=== PATIENT | female | born 1985 | race Caucasian/White ===

== ENCOUNTER → 2016-09-04 | Day surgery (SDC) | payer BC ==
[~2016-09-04] VITALS: Ht 162.6 cm; Wt 124.7 kg
[~2016-09-04] MED LIST: BUPIVAC MPF-EPI 0.5%-1:200000 30 ML VIAL. ONE; CEFAZOLIN 2GM PREMIX 50 ML IV PRN; DEXAMETHASONE SOD PHOS 20 MG/5 ML VIAL. ONE; DULO60CA6 PO; EPHEDRINE PF IN SALINE 50 MG/5 ML DISP.SYRIN. IV ONE; FENTANYL PF 100 MCG/2 ML VIAL. IV PRN; FENTANYL PF 100 MCG/2 ML VIAL. ONE; HYDROMORPHONE 2 MG/ML VIAL. IV PRN; IBUP-1027 PO; IV RINGERS,LACTATED 1000ML 1,000 ML IV SCH; LIDOCAINE 1% 1 ML SYRINGE. ID PRN; LIDOCAINE 1%/EPI 1:100,000 20 ML VIAL. ONE; LIDOCAINE 2% 100 MG/5 ML DISP.SYRIN. ONE; METF10002 PO; ONDANSETRON PF 4 MG/2 ML VIAL. IV PRN; ONDANSETRON PF 4 MG/2 ML VIAL. ONE; OXYC-323 PO; OXYCODONE/APAP 5/325 TABLET. PO ONE; PROCHLORPERAZINE 10 MG/2 ML VIAL. IV PRN; PROPOFOL 20 ML IV ONE; SEVOFLURANE 61 TO 120 MINUTES. IH ONE; SUCCINYLCHOLINE 200 MG/10 ML VIAL. ONE
[2016-09-04 07:58] LABS: NEG OBC UR NEG; POS OBC UR POS
--- NOTE | 2016-09-04 09:48 | DISCH ---
DISCHARGE INSTRUCTIONS Condition on Discharge Condition on Discharge: Stable Activity After Discharge Activity Instructions for Disc: Activity as tolerated Driving Instructions after Dis: Other, see below (no driving if taking pain meds) Diet after Discharge Diet after Discharge: Regular Wound Incision Care Wound/Incision Care: Other, see below (keep dressing clean and dry X 72 hours, may then remove and shower) Follow-Up Follow up with: Dr More in 1-2 weeks, call for appointment [phone] KIANA MORE MD Sep 04, 2016 09:48
--- NOTE | 2016-09-04 09:54 | PDOC4 ---
Operative Note Operative Note Operative Note: Preoperative Diagnosis: Left lower quadrant abdominal wall mass Postoperative Diagnosis: Same Procedure: Excision of left lower quadrant abdominal wall mass Surgeon: Robert Anesthesia: Gen. EBL: 10 mL Specimen: Abdominal wall mass to pathology Drains: None Complications: None Indication: The patient is a 30-year-old female who is referred due to a tender left lower quadrant abdominal wall mass. She complained of focal pain in the mass was confirmed on CT scan. She was offered surgical excision. The risks of surgery were discussed which include bleeding, infection, recurrence, pain, anesthetic risk, potential need for additional surgery or procedure. She understands and would like to proceed. Description: The patient was taken to the operating room and placed supine on the operating table. Gen. anesthesia was performed. The abdomen was prepped with ChloraPrep and draped in a standard surgical manner. An incision was made in the left lower quadrant near the location of the expected mass. Cautery dissection was carried down to the deeper subcutaneous tissue. I was able to clearly palpate a firm fibrotic area corresponding to the mass near the lateral border of the rectus. Cautery dissection was continued in mobilizing the mass from the surrounding normal tissue. This was somewhat difficult due to the marked fibrosis and inflammatory change. The mass also appeared to be adherent to the fascia. Gradually we were able to fully mobilize the mass circumferentially. The mass did not appear to penetrate deep to the fascia. The mass was then taken off of the fascia using sharp dissection. The mass was then completely excised and measured 6 x 6 cm which incorporated the surrounding fibrotic tissue. This was sent to pathology in formalin. Several small bleeding points in the wound base were controlled with cautery. Hemostasis was good and no other abnormalities were seen. The fascia was reinspected and appeared intact with no need for reconstruction. The deep subcutaneous tissue was approximated with interrupted 0 Vicryl. The more superficial subcutaneous tissue was closed with 3-0 Vicryl. The skin was closed with 4-0 Monocryl. Half percent Marcaine with epinephrine was infiltrated at the incision site. Steri-Strips and a sterile dressing were then applied. The patient tolerated the procedure well and was sent to the recovery room in stable condition. At the end of the case all counts were correct. KIANA MORE MD Sep 04, 2016 09:54
[2016-09-04] MEDS: FENTANYL PF 100 MCG/2 ML VIAL. IV PRN ×4 (10:17→10:48)
[2016-09-04] MEDS: MORPHINE SULFATE 2 MG/ML DISP.SYRIN. IV PRN ×5 (10:29→11:33)
[2016-09-04 11:47] VITALS: BP 130/73
--- NOTE | 2016-09-05 15:09 | PATHOLOGY ---
PATHOLOGY REPORT * * * * * * * * FINAL DIAGNOSIS: Fibroadipose tissue, left lower quadrant abdominal wall mass: - Endometriosis with associated scarring and focal chronic inflammation. COMMENT: There is no evidence of malignancy. (TRINITYM:; d/t: 09/05/16) REPORT ELECTRONICALLY SIGNED BY: Perry Pacheco M.D. DATE/TIME: 09/05/2016 15:08 * * * * * * * * GROSS PATHOLOGY: Received in formalin labeled "Bolivar Blakely and left lower quadrant abdominal wall mass," is a segment of lobulated fibroadipose tissue measuring 6.2 x 5.5 x 4.3 cm in maximum dimensions. The specimen is inked black. Sectioning reveals a 2.5 x 2.5 x 2.0 cm white-sebastian, poorly circumscribed, and partially cystic lesion filled with dark brown viscous fluid. The lesion is located approximately 0.3 cm from the nearest margin. Automatic Brine Mixer Operator tissue is submitted in cassettes A1-A4. (TTL; 09/04/2016) INITIAL CPT CODE(S): 17306 Professional services performed [place] [facility] [address] Technical services performed by [facility] at [address] [place] [address] Dr. Jones SPECIMEN(S) RECEIVED: A.Left lower quadrant abdominal wall mass CLINICAL HISTORY: Left lower quadrant abdominal wall mass PATIENT: BOLIVAR BLAKELY /AGE: 7 1985 (Age: 30) PATIENT #: [id number] ALT CASE #: SPECIMEN COLLECTION DATE: 09/04/2016 SPECIMEN RECEIVED DATE: 09/04/2016 [facility] - [address] [place] [address] - PHONE: [phone] * * * END OF REPORT * * *
== END | disposition home or self-care (01) ==
LOC: SURG 06:58
PROVIDERS: ATTEND Surgery
DX: M79.89 Other specified soft tissue disorders (principal); E66.9 Obesity, unspecified; Z72.0 Tobacco use; Z90.49 Acquired absence of other specified parts of digestive tract
CPT/HCPCS: 22903; 81025; 82947; J0330; J0690; J1100; J2270; J2405; J2704; J3010; J3490

== ENCOUNTER 2016-10-27 12:31 | Emergency (ER) | payer BC ==
[~2016-10-27] VITALS: Ht 162.6 cm; Wt 125.6 kg
[~2016-10-27 12:31] MED LIST changes: -BUPIVAC MPF-EPI 0.5%-1:200000 30 ML VIAL. ONE; -CEFAZOLIN 2GM PREMIX 50 ML IV PRN; -DEXAMETHASONE SOD PHOS 20 MG/5 ML VIAL. ONE; -EPHEDRINE PF IN SALINE 50 MG/5 ML DISP.SYRIN. IV ONE; -FENTANYL PF 100 MCG/2 ML VIAL. IV PRN; -FENTANYL PF 100 MCG/2 ML VIAL. ONE; -HYDROMORPHONE 2 MG/ML VIAL. IV PRN; -IV RINGERS,LACTATED 1000ML 1,000 ML IV SCH; -LIDOCAINE 1% 1 ML SYRINGE. ID PRN; -LIDOCAINE 1%/EPI 1:100,000 20 ML VIAL. ONE; -LIDOCAINE 2% 100 MG/5 ML DISP.SYRIN. ONE; +METF-620 PO; -METF10002 PO; -ONDANSETRON PF 4 MG/2 ML VIAL. IV PRN; -ONDANSETRON PF 4 MG/2 ML VIAL. ONE; -OXYCODONE/APAP 5/325 TABLET. PO ONE; -PROCHLORPERAZINE 10 MG/2 ML VIAL. IV PRN; -PROPOFOL 20 ML IV ONE; -SEVOFLURANE 61 TO 120 MINUTES. IH ONE; -SUCCINYLCHOLINE 200 MG/10 ML VIAL. ONE
[2016-10-27 12:58] VITALS: BP 171/79
[2016-10-27 13:13] LABS: BILIRUBIN,URINE NEGATIVE (NEG); GLUCOSE,URINE >=1000 mg/dL (NEG); NITRITE,URINE NEGATIVE (NEG); PH,URINE 5.5; PROTEIN,URINE NEGATIVE (NEG-TRACE); UROBILINOGEN,URINE 0.2 mg/dL (0.2 mg/dL)
--- NOTE | 2016-10-27 13:17 | ED.ADGEN ---
Adult General Chief Complaint Chief Complaint: ABDOMINAL PAIN HPI HPI Patient is a 30 year old woman, history of type 2 diabetes mellitus, for which she uses metformin, who presents emergency Department with complaint of worsening left lower quadrant abdominal pain. Patient states that the symptoms she is experiencing have been coming and going over the past several weeks. She states that she had a surgery performed on her left lower abdomen in August of this year to excise a mass due to scarring from endometriosis. She states the pain is the same location, and has been associated with recurrence and continued increasing size of mass in that area. She states she was seen by her surgeon, Dr. Jones, last week, at that time he stated he would continue to monitor the situation. States over the pain has been recurrent and worsening with a past several days, prompting her to come to the ED for evaluation. She states she's been using medications such as ibuprofen and Midol at home without relief. She states the pain is a stabbing and cramping sensation that radiates across her abdomen was worse the left lower quadrant. She denies any fevers or chills, any chest pain or shortness breath, any nausea or vomiting, any urinary complaints, any diarrhea, any weakness numbness or tingling. No injuries. Denies any possibility of , no discharge or drainage from the vagina. She has not taken any medication for pain today. Review of Systems Review of Systems Constitutional: Denies fever or chills. [] Eyes: Denies change in visual acuity. [] HENT: Denies nasal congestion or sore throat. [] Respiratory: Denies cough or shortness of breath. [] Cardiovascular: Denies chest pain or edema. [] GI: Denies nausea, vomiting, bloody stools or diarrhea. Stabbing pain in the left abdomen, associated with abdominal wall mass. : Denies dysuria. [] Musculoskeletal: Denies back pain or joint pain. [] Integument: Denies rash. [] Neurologic: Denies headache, focal weakness or sensory changes. [] Endocrine: Denies polyuria or polydipsia. [] Lymphatic: Denies swollen glands. [] Psychiatric: Denies depression or anxiety. [] Current Medications Current Medications Current Medications Medications (Trade) Dose Ordered Sig/Denis Start Time Stop Time Status Last Admin Dose Admin Morphine Sulfate 4 mg PRN Q15MIN PRN 10/27/16 14:45 10/28/16 14:44 10/27/16 15:10 4 MG Naproxen (Naprosyn) 250 mg 1X ONCE 10/27/16 13:45 10/27/16 13:46 DC 10/27/16 13:58 250 MG Oxycodone/ Acetaminophen (Percocet 5/325) 1 tab 1X ONCE 10/27/16 13:45 10/27/16 13:46 DC 10/27/16 13:58 1 TAB Allergies Allergies Allergies Coded Allergies Type Severity Reaction Last Updated Verified diphenhydramine Allergy Intermediate Hives 09/04/16 Yes latex Allergy Intermediate 09/04/16 Yes Physical Exam Physical Exam Constitutional: Well developed, obese, no acute distress, non-toxic appearance. [] HENT: Normocephalic, atraumatic, bilateral external ears normal, oropharynx moist, no oral exudates, nose normal. [] Eyes: PERRLA, EOMI, conjunctiva normal, no discharge. [] Neck: Normal range of motion, no tenderness, supple, no stridor. [] Cardiovascular:Heart rate regular rhythm, no murmur, S1, S2, rubs or gallops. [] Lungs & Thorax: Bilateral breath sounds clear to auscultation, no wheezing, rhonchi, rales. No chest wall crepitus or tenderness. [] Abdomen: Bowel sounds normal, soft, patient with well-healed surgical incision noted in the left lower abdomen, patient has an approximately 6 cm x 7 cm mass located in the left lower quadrant in this region above the scar, which is mobile, no signs of skin changes, tender to palpation in the area, there is a palpation, no external signs of trauma or lesions, no pulsatile masses. [] Skin: Warm, dry, no erythema, no rash. [] Back: No tenderness, no CVA tenderness. [] Extremities: No tenderness, no cyanosis, no clubbing, ROM intact, no edema. [] Neurologic: Alert and oriented X 3, normal motor function, normal sensory function, no focal deficits noted. [] Psychologic: Affect normal, judgement normal, mood normal. [] Current Patient Data Vital Signs Vital Signs Date Time Temp Pulse Resp B/P (MAP) Pulse Ox O2 Delivery O2 Flow Rate FiO2 10/27/16 15:10 Room Air 10/27/16 12:58 98.4 95 18 171/79 109 93 98.4 Lab Values Laboratory Tests Test 10/27/16 12:11 10/27/16 12:59 POC Urine HCG, Qualitative Hcg negative (Negative) Urine Collection Type Unknown Urine Color Yellow Urine Clarity Clear Urine pH 5.5 Urine Specific [place] >=1.030 Urine Protein Negative mg/dL (NEG-TRACE) Urine Glucose (UA) >=1000 mg/dL (NEG) Urine Ketones (Stick) Negative mg/dL (NEG) Urine Blood Negative (NEG) Urine Nitrite Negative (NEG) Urine Bilirubin Negative (NEG) Urine Urobilinogen Dipstick 0.2 mg/dL (0.2 mg/dL) Urine Leukocyte Esterase Negative (NEG) Urine RBC 0 /HPF (0-2) Urine WBC 1-4 /HPF (0-4) Urine Bacteria 0 /HPF (0-FEW) EKG EKG Not indicated. [] Radiology/Procedures Radiology/Procedures [] [facility] [address] [place] [address] IMAGING REPORT Signed PATIENT: YAIMA DALLAS ACCOUNT: [id number] : 1985 LOCATION: ER AGE: 30 SEX: F EXAM STATUS: REG ER ORD. PHYSICIAN: FOREST HOFF DO REASON: L abd mass/likely seroma s/p excision of emdometrioma/US notify at 1400 PROCEDURE: ABDOMEN LTD Examination: Ultrasound abdomen limited History: History of left lower quadrant abdomen mass Comparison: None available Findings In the region of the left lower quadrant of the abdomen, near the surgical site, at the site of palpability, there is a 6.9 x 7.4 x 6.6 cm complex appearing structure cystic structure containing internal echoes likely hematoma or seroma. No vascular flow within. Impression: 7.4 cm complex appearing cystic structure containing internal echoes likely hematoma /seroma at the site of palpability in the left lower quadrant abdomen. Follow-up to resolution. DICTATED and SIGNED BY: JOSEFA DICK MD DATE: 10/27/16 0534 CC: FOREST HOFF DO; MENDEL MONTANO ~ Course & Med Decision Making Course & Med Decision Making Pertinent Labs and Imaging studies reviewed. (See chart for details) After examining the patient, I spoke to Dr. Loza, was on-call for the patient' s surgeon. He did review her records, after examination I believe this is likely a seroma based on the patient's surgical history and time frame. He requested an ultrasound be performed to further elucidate the patient's symptoms , if it is a seroma the no be appropriate for the patient to follow-up in the office for additional evaluation with pain control. I discussed this with patient, she is agreeable this plan. She did receive naproxen and hydrocodone in the emergency department, with some improvement of her pain all she continues to have discomfort. Ultrasound revealed a 6.9 x 7.4 x 6.6 cm complex cystic structure containing internal echoes likely hematoma or seroma. No flow within this area, no other abnormalities identified. I did discuss with the patient, discussed that the sternal may be reabsorbed by the body, but that she will be best served by following up with Dr. Jones next week for additional evaluation, we did discuss concerning symptoms that prompt return to the emergency department, and use of pain medication as needed along with medication precautions. Patient voiced understanding and agreement with both instructions and plan, discharged home in stable condition with family with plan as above. Dragon Disclaimer Dragon Disclaimer This electronic medical record was generated, in whole or in part, using a voice recognition dictation system. Departure Impression: Primary Impression: Abdominal wall mass of left lower quadrant Additional Impression: Abdominal pain Disposition: 01 HOME, SELF-CARE Condition: IMPROVED Scripts Hydrocodone/Apap 5-325 (NORCO 5-325 TABLET) 1 Each Tablet 1 TAB PO PRN Q6HRS Y for PAIN, #12 TAB 0 Refills Prov: FOREST HOFF DO 10/27/16 Naproxen (NAPROSYN) 500 Mg Tablet 500 MG PO BID, #10 TAB Prov: FOREST HOFF DO 10/27/16 Problem Qualifiers FOREST HOFF DO October 27, 2016 13:17
[2016-10-27 13:24] LABS: BACTERIA,URINE 0 /HPF (0-FEW); RBC,URINE 0 /HPF (0-2)
[2016-10-27] MEDS ORDERED: NAPROXEN 250 MG TABLET PO ONE (13:45)
[2016-10-27] MEDS ORDERED: oxyCODONE/APAP 5/325 1 TAB TABLET PO ONE (13:45)
[2016-10-27] MEDS ORDERED: MORPHINE SULFATE 4 MG/ML DISP.SYRIN. IV/SQ PRN (14:45)
--- NOTE | 2016-10-27 15:09 | RAD ---
Examination: Ultrasound abdomen limited History: History of left lower quadrant abdomen mass Comparison: None available Findings In the region of the left lower quadrant of the abdomen, near the surgical site, at the site of palpability, there is a 6.9 x 7.4 x 6.6 cm complex appearing structure cystic structure containing internal echoes likely hematoma or seroma. No vascular flow within. Impression: 7.4 cm complex appearing cystic structure containing internal echoes likely hematoma /seroma at the site of palpability in the left lower quadrant abdomen. Follow-up to resolution.
[2016-10-27] MEDS ORDERED: HYDR-971 PO (15:19)
[2016-10-27] MEDS ORDERED: NAPR500T PO (15:19)
== END 2016-10-27 15:35 | disposition home or self-care (01) ==
LOC: ER 13:53
DX: R19.04 Left lower quadrant abdominal swelling, mass and lump (principal); R10.32 Left lower quadrant pain; E11.9 Type 2 diabetes mellitus without complications; Z79.899 Other long term (current) drug therapy; Z88.8 Allergy status to other drugs, medicaments and biological substances; Z91.040 Latex allergy status
CPT/HCPCS: 76705; 81001; 81025; 96374; 99285; J2270

== ENCOUNTER 2016-10-31 06:53 | Outpatient (CLI) | payer BC ==
[2016-10-31] VITALS (13 sets, daily range): BP systolic 121–146; BP diastolic 59–86
[~2016-10-31] VITALS: Ht 162.6 cm; Wt 124.7 kg
[~2016-10-31 06:53] MED LIST changes: +HYDR-971 PO; +NAPR500T PO
[2016-10-31 07:19] LABS: BASO # 0.1 x10^3/uL (0.0-0.2); BASO % 1 % (0-3); EOS % 2 % (0-3); HEMATOCRIT 43.5 % (36.0-47.0); HEMOGLOBIN 14.7 g/dL (12.0-15.5); LYMPH % 26 % (24-48); MEAN CORPUSCULAR HEMOGLOBIN 29 pg (25-35); MEAN CORPUSCULAR HGB CONC 34 g/dL (31-37); MEAN CORPUSCULAR VOLUME 87 fL (79-100); MONO % 8 % (0-9); NEUT % 64 % (31-73); PLATELET COUNT 197 x10^3/uL (140-400); RED CELL DISTRIBUTION WIDTH 13.2 % (11.5-14.5); WHITE BLOOD COUNT 7.8 x10^3/uL (4.0-11.0)
[2016-10-31 07:29] LABS: PROTHROMBIN TIME PATIENT 12.1 SEC (11.7-14.0)
[2016-10-31] MEDS ORDERED: LIDOCAINE 1% / SOD BICARB 8.4% 20 ML VIAL. IJ ONE ×2 (08:13→08:45)
[2016-10-31] MEDS ORDERED: fentaNYL PF VIAL 250 MCG/5 ML VIAL ONE (08:24)
[2016-10-31] MEDS ORDERED: MIDAZOLAM HCL/PF 5 MG/5 ML VIAL. ONE (08:24)
[2016-10-31] MEDS ORDERED: fentaNYL PF VIAL 250 MCG/5 ML VIAL IV ONE (08:40)
[2016-10-31] MEDS ORDERED: MIDAZOLAM HCL/PF 5 MG/5 ML VIAL. IV ONE (08:45)
--- NOTE | 2016-10-31 09:31 | PDOC ---
MODERATE SEDATION ASSESSMENT RISKS/ALTERNATIVES Risks/Alternatives Risks and alternatives of this type of sedation and procedure discussed with: RISK/ALTERNATIVES: Patient H & P ON CHART H & P H & P on chart and reviewed for co-morbid conditions and appropriate labs. H&P ON CHART: Yes STATUS PREG STATUS ASSESSED: Yes MEDS/ALLERGIES REVIEWED Meds/Allergies Reviewed Medications and Allergies including time and route of recently administered narcotics and sedatives. MEDS/ALLERGIES REVIEWED: Yes ASA RATING ASA RATING: II AIRWAY ASSESSMENT Airway Assessment Airway patency, oral function limitations, presence of caps, crowns, dentures, partials, and ability to extend neck assessed. AIRWAY ASSESSMENT: Yes MALLAMPATI SCORE MALLAMPATI SCORE: III PRE-SEDATION ASSESSMENT PRE-SEDATION ASSESSMENT: Yes ERIK NGUYEN MD October 31, 2016 09:31
--- NOTE | 2016-10-31 09:38 | PDOC1 ---
History and Physical Date of Procedure Date of Admission 10/31/16 Procedure Procedure U/S guided catheter drainage of LLQ abdominal wall post op complex fluid collection Indication Indication 30 YO female with tender LLQ post-op complex fluid collection Past Medical History Past Medical History See Nursing Pre procedure PMH Past Surgical History Past Surgical History See Nursing Pre procedure PSH Current Medications Current Medications Current Medications Lidocaine/Sodium Bicarbonate (Buffered Lidocaine 1%) 20 ml STK-MED ONCE IJ ; Start 10/31/16 at 08:13; Stop 10/31/16 at 08:14; Status DC Midazolam HCl (Versed) 5 mg STK-MED ONCE .ROUTE ; Start 10/31/16 at 08:24; Stop 10/31/16 at 08:25; Status DC Fentanyl Citrate (Fentanyl 5ml Vial) 250 mcg STK-MED ONCE .ROUTE ; Start at 08:24; Stop 10/31/16 at 08:25; Status DC Lidocaine/Sodium Bicarbonate (Buffered Lidocaine 1%) 20 ml 1X ONCE IJ Last administered on 10/31/16 09:06; Start 10/31/16 at 08:45; Stop 10/31/16 at 08:46 ; Status DC Midazolam HCl (Versed) 5 mg 1X ONCE IV Last administered on 10/31/16 09:06; Start 10/31/16 at 08:45; Stop 10/31/16 at 08:46; Status DC Fentanyl Citrate (Fentanyl 5ml Vial) 100 mcg 1X ONCE IV Last administered on 09:09; Start 10/31/16 at 08:40; Stop 10/31/16 at 08:44; Status DC Active Scripts Active [place] 5-325 Tablet (Acetaminophen/Hydrocodone Bitart) 1 Each Tablet 1 Tab PO PRN Q6HRS PRN Naprosyn (Naproxen) 500 Mg Tablet 500 Mg PO BID Reported Percocet 5-325 Mg Tablet (Oxycodone/Acetaminophen) 1 Each Tablet 1-2 Tab PO Q4- 6HRS PRN Ibuprofen 400 Mg Tablet 400 Mg PO PRN Q6HRS PRN Cymbalta (Duloxetine Hcl) 60 Mg Capsule. 1 Cap PO DAILY Metformin Hcl 1,000 Mg Tablet 1 Tab PO BID Allergies Allergies: Coded Allergies: diphenhydramine (Verified Allergy, Intermediate, Hives, 09/04/16) and makes her nervous latex (Verified Allergy, Intermediate, 09/04/16) "danielson my skin" Physical Exam Vital Signs Vital Signs Date Time Temp Pulse Resp B/P (MAP) Pulse Ox O2 Delivery O2 Flow Rate FiO2 10/31/16 09:12 79 18 96 Room Air 10/31/16 09:06 2.0 10/31/16 07:38 98.4 141/71 (94) 98.4 Lungs: Clear to auscultation Heart: Regular rate Psych/Mental Status: Mental status NL Other Tender LLQ abdominal wall post-op complex fluid collection Diagnostic Data/Imaging Images [facility] U/S from 10/27/16 reviewed. Assessment Assessment Tender post-op LLQ abdominal wall complex fluid collection---hematoma vs seroma vs abscess Problems: Plan Plan U/S guided catheter drainage of LLQ post-op complex fluid collection ERIK NGUYEN MD October 31, 2016 09:38
[2016-10-31] MEDS ORDERED: ALTEPLASE 2MG VIAL 5 MG in IV NORMAL SALINE 50ML 30 ML IV ONE (09:45)
--- NOTE | 2016-10-31 09:53 | PDOC ---
Exam Junior Programmer Analyst Junior Programmer Analyst Jennifer Tavern Keeper Tavern Keeper F Ndumbu Pre-Procedure Diagnosis Pre-Procedure Diagnosis 30 YO female s/p excision of LLQ abdominal wall mass consisting of fibroadipose tissue + endometriosis. Now with tender LLQ abd wall multi-loculated post-op complex fluid collection ( by [facility] U/S done 10/27/16). Post-Procedure Diagnosis Post-Procedure Diagnosis Same Procedure Performed Procedure Performed U/S guided insertion of drainage catheter into multi-loculated LLQ abdominal wall complex fluid collection---satisfactory drain position confirmed with limited CT imaging. Type of Anesthesia Type of Anesthesia Local + Mod sedation Estimated Blood Loss EBL: Trace Specimens Specimans Due to multi-loculation, only 30 cc bloody complex fluid could be removed--- sample to micro Drain/Tubes Drains/Tubes 12F locking pigtail LLQ abd wall drainage catheter Condition of Patient Condition of Patient Stable. No apparent complication. Disposition Disposition Home from CVOBS post recovery, with drain to bulb suction. Due to multi-loculation of complex fluid collection, only a portion of fluid could be removed via 12F drain. Will attempt t-PA administration thru drainage catheter during recovery from mod sedation. F/u with Dr Jones next week. Full report to follow. ERIK NGUYEN MD October 31, 2016 09:53
[2016-10-31] MEDS ORDERED: oxyCODONE/APAP 5/325 1 TAB TABLET PO ONE (10:00)
--- NOTE | 2016-10-31 16:36 | RAD ---
Ultrasound-guided drainage catheter insertion into left lower quadrant abdominal wall complex fluid collection Indication: 30-year-old female underwent excision of a left lower quadrant abdominal wall mass 09/04/2016. A [facility] ultrasound from 10/27/2016 revealed the presence of a tender, multiloculated, complex abdominal wall fluid collection at the surgical site. Image guided catheter drainage has been requested. Anesthesia: 41 minutes moderate sedation was provided utilizing a total of 2 mg Versed and 150 mcg fentanyl, IV. The patient was appropriately monitored by a qualified independent observer throughout the time of moderate sedation. Consent: The procedure was explained in its entirety to the patient and/or the patient's designated clearance representative by a member of the treatment team. This included a discussion of risks and benefits and acceptable alternatives to the procedure, as well as expected consequences of no treatment at all. Discussion of risks included, but was not limited to, those that are most frequent and those that are rare, but possibly severe or life-threatening, as well as the possibility of unforeseen complications. Procedure: Informed consent was obtained from the patient. This procedure was performed with ultrasound guidance, with the patient on the CT table, in case additional CT guidance was required. Preliminary ultrasound examination of left lower quadrant confirmed the previously described multiloculated complex fluid collection within abdominal wall deep subcutaneous tissues. This was documented with transverse and longitudinal hard copy copy ultrasound images. A skin site suitable for ultrasound-guided drainage was selected and marked. That area was prepped and draped in the usual sterile fashion. Moderate sedation was provided with IV Versed and fentanyl. Using aseptic technique, local anesthesia, and direct ultrasound guidance, a 21-gauge micropuncture needle was successfully introduced into the complex fluid collection. The micropuncture needle was then exchanged over a microguidewire for a small micropuncture sheath, which was, in turn, removed over a 0.035 inch guidewire. The percutaneous tract was dilated and a 12 [place] locking pigtail drainage catheter was easily introduced. Only approximately 30 cc of bloody complex fluid could be aspirated aspirated, a sample of which was submitted to microbiology for Gram stain and culture and sensitivity. Tip of the drainage catheter was difficult to separate sonographically from multiple internal septations within the complex fluid collection. Therefore, limited CT imaging was performed, which confirmed satisfactory position of the drainage catheter. The 12 Barb[place] drain was then connected to bulb suction and was secured at the skin exit site utilizing suture and sterile dressing. Patient tolerated the procedure well without apparent complication. The patient was then transported from the CT scanner to CV observation for recovery from moderate sedation. During her recovery time, 5 mg t-PA in 25 cc normal saline was injected through the drainage catheter into the residual complex fluid collection. The drainage catheter was then capped for 90 minutes. The catheter was then reconnected to bulb suction, with prompt evacuation of an additional 40 cc of bloody complex fluid. The patient was then discharged home with her drain to bulb suction. She was instructed to follow-up with her general surgeon next week. Impression: Successful, uneventful ultrasound-guided insertion of a 12 [place] locking pigtail drainage catheter into left lower quadrant abdominal wall multiloculated, complex, postoperative fluid collection, as described. Limited CT imaging confirmed satisfactory position of the drainage catheter. Transcatheter t-PA fibrinolysis was successfully and uneventfully performed in the CV observation area, during recovery from moderate sedation. The patient was then discharged home with the 12 Barb[place] drain connected to bulb suction, with instructions to follow-up with her general surgeon next week. PQRS Compliance Statement: One or more of the following individualized dose reduction techniques was utilized for this procedure: 1. Automated exposure control. 2. Adjustment of MA and/or KV according to patient size. 3. Iterative reconstruction technique.
== END 2016-10-31 12:15 | disposition home or self-care (01) ==
LOC: INTRAD 06:53
PROVIDERS: ATTEND Surgery
DX: L76.34 Postprocedural seroma of skin and subcutaneous tissue following other procedure (principal); E66.9 Obesity, unspecified; E11.9 Type 2 diabetes mellitus without complications; Z72.0 Tobacco use; Z90.49 Acquired absence of other specified parts of digestive tract; F17.290 Nicotine dependence, other tobacco product, uncomplicated; Z79.01 Long term (current) use of anticoagulants
CPT/HCPCS: 10030; 36415; 85027; 85610; 87205; A4215; C1729; C1892; C1894; J2250; J2997; J3010; 87071; 87075

== ENCOUNTER 2016-11-01 14:30 | Emergency (ER) | payer BC ==
[2016-11-01 15:06] VITALS: BP 140/71
[2016-11-01 15:51] LABS: POTASSIUM ISTAT 3.8 mmol/L (3.5-5.0)
--- NOTE | 2016-11-01 16:00 | PHYS DOC ---
Past Medical History Past Medical History: Diabetes-Type II, Other Additional Past Medical Histor: abdominal wall seroma Past Surgical History: Additional Past Surgical Histo: endometrial scar tissue removal; IR drain to abdominal seroma Past Surgical History LLQ abdominal mass excision Alcohol Use: None Drug Use: None Adult General Chief Complaint Chief Complaint: POST-OP PROBLEM HPI HPI Patient is a 30 year old female POD#1 from abdominal wall drain for seroma who presents with for bilateral lower extremity swelling and burning sensation to foot plantar surfaces starting today. She called clinic and was told to come to the ED by a nurse. She otherwise notes slightly decreased drain filling today than yesterday. States she is otherwise feeling similar to prior with no other new complaints. Has minimal nausea and continues to have abdominal pain. Denies f/c, dysuria, hematuria, diarrhea, constipation, saddle anesthesia, bowel or bladder dysfunction, rash, drain pulling. Review of Systems Review of Systems Constitutional: Denies fever or chills [] Eyes: Denies change in visual acuity, redness, or eye pain [] HENT: Denies nasal congestion or sore throat [] Respiratory: Denies cough or shortness of breath [] Cardiovascular: No additional information not addressed in HPI [] GI: Denies abdominal pain, nausea, vomiting, bloody stools or diarrhea [] : Denies dysuria or hematuria [] Musculoskeletal: Denies back pain or joint pain [] Integument: Denies rash or skin lesions [] Neurologic: Denies headache, focal weakness or sensory changes [] Endocrine: Denies polyuria or polydipsia [] Allergies Allergies Allergies Coded Allergies Type Severity Reaction Last Updated Verified diphenhydramine Allergy Intermediate Hives 09/04/16 Yes latex Allergy Intermediate 09/04/16 Yes Physical Exam Physical Exam Constitutional: Well developed, well nourished, no acute distress, non-toxic appearance. [] HENT: Normocephalic, atraumatic, bilateral external ears normal, oropharynx moist, nose normal. [] Eyes: PERRLA, EOMI. [] Neck: Normal range of motion, supple. [] Cardiovascular:Heart rate regular rhythm [] Lungs & Thorax: Bilateral breath sounds clear to auscultation [] Abdomen: Bowel sounds normal, soft, minimal tenderness to LLQ about drain site; skin appears well here; bulb drain with serosanguinous fluid. [] Skin: Warm, dry, no erythema, no rash. [] Back: Normal ROM. [] Extremities: No tenderness, ROM intact, bilateral 1+ lower extremity edema to ankles, equal 2+ DP and PT pulses, no palpable cord or discoloration. [] Neurologic: Alert and oriented X 3, normal motor function, normal sensory function, no focal deficits noted. [] Psychologic: Affect normal, judgement normal, mood normal. [] Current Patient Data Vital Signs Vital Signs Date Time Temp Pulse Resp B/P (MAP) Pulse Ox O2 Delivery O2 Flow Rate FiO2 11/01/16 15:06 99.0 96 18 140/71 (94) 94 Room Air 99.0 Lab Values Laboratory Tests Test 11/01/16 15:42 POC Hemoglobin 15.0 g/dL (12-15) POC Hematocrit 44 % (36-40) H POC Sodium 137 mmol/L (135-145) POC Potassium 3.8 mmol/L (3.5-5.0) POC Chloride 101 mmol/L (98-110) POC Total CO2 23 mmol/L (23-32) Anion Gap 18 mmol/L (6-14) H POC Blood Urea Nitrogen 8 mg/dL (8-26) POC Creatinine 0.7 mg/dL (0.5-1.4) Glucose Level 349 mg/dL (70-99) H POC Ionized Calcium (Petra) 1.12 mmol/L (1.13-1.32) L Laboratory Tests 11/01/16 15:42 Course & Med Decision Making Course & Med Decision Making Pertinent Labs and Imaging studies reviewed. (See chart for details) Laboratory evaluation is unremarkable. Recommend elevation of feet to help with edema. Return precautions given. She understands and agrees with plan. Dragon Disclaimer Dragon Disclaimer This electronic medical record was generated, in whole or in part, using a voice recognition dictation system. Departure Departure Impression: Primary Impression: Bilateral lower extremity edema Disposition: 01 HOME, SELF-CARE Condition: STABLE Referrals: MENDEL MONTANO (PCP) Patient Instructions: Peripheral Edema Additional Instructions: Elevate your feet above your knees and your knees above your heart to help with swelling. Follow-up with your primary care doctor and general surgeon. Return for any concerns. Jose BAIRD MD November 01, 2016 16:00
== END 2016-11-01 16:35 | disposition home or self-care (01) ==
LOC: ER 16:04
DX: R60.0 Localized edema (principal); E11.9 Type 2 diabetes mellitus without complications; Z98.890 Other specified postprocedural states; Z91.040 Latex allergy status; Z88.8 Allergy status to other drugs, medicaments and biological substances
CPT/HCPCS: 80047; 99282